=== PATIENT | female | born 1980 ===

== ENCOUNTER 2023-02-10 10:18 | Day surgery (SDC) | payer BC ==
[~2023-02-10] VITALS: Ht 170.2 cm; Wt 99.0 kg
[2023-02-10 12:11] VITALS: BP 130/101; PULSE 89; TEMP 97.6
[2023-02-10] MEDS ORDERED: BUSPAR 30MG30 MG/TAB PO (12:14)
[2023-02-10] MEDS ORDERED: CATAPRES0.3 MG PO (12:14)
[2023-02-10] MEDS ORDERED: SINGULAIR 110 MG/TAB PO (12:15)
[2023-02-10] MEDS ORDERED: PROTONIX20 MG PO (12:15)
[2023-02-10] MEDS ORDERED: ADDERALL5 MG PO (12:16)
[2023-02-10] MEDS ORDERED: MOBIC15 MG PO (12:16)
[2023-02-10] MEDS ORDERED: FLONASEALLERGY NS (12:17)
[2023-02-10] MEDS ORDERED: ZYRTEC 10MG10 MG PO (12:17)
[2023-02-10] MEDS ORDERED: ASTELIN NASAL S34 ML NS (12:18)
[2023-02-10 13:40] VITALS: BP 108/79; PULSE 91; TEMP 98.2
[2023-02-10 13:55] VITALS: BP 109/79; PULSE 84
[2023-02-10 14:10] VITALS: BP 118/74; PULSE 82
[2023-02-10 14:25] VITALS: BP 121/72; PULSE 85
--- NOTE | 2023-02-10 16:42 | NUR ---
[id number]: PT TO RECOVERY BAY 8 FROM ENDO S/P EGD/COLON A&O, PLACED ON MONITOR, VSS ON RA RECEIVED REPORT AND ASSUMED CARE OF PT FROM [facility] SPOUSE AT BEDSIDE PROVIDED FOOD/FLUIDS, TOLERATING WELL MD IN TO SPEAK WITH PT/FAMILY POST-PROCEDURE PT HAS REMAINED A&O, NAD, VSS ON RA, TOLERATING PO, IS WITHOUT SIGNIFICANT COMPLAINT, WITH STEADY GAIT THRU OUT STAY IV D/C'D. D/C INSTRUCTIONS, ANY FOLLOW UP REVIEWED AND HANDED TO PT. ALL QUESTIONS AND CONCERNS ADDRESSED TO PT SATISFACTION. TAKEN TO EXIT VIA W/C WITH ALL BELONGINGS AND PAPERWORK IN HAND, ASSISTED INTO PASSENGER SEAT OF POV. TO DRIVE HOME.
== END 2023-02-10 14:50 | disposition home or self-care (01) ==
LOC: SDCO 10:18
DX: R10.84 Generalized abdominal pain (principal); R14.1 Gas pain; R14.0 Abdominal distension (gaseous); R19.7 Diarrhea, unspecified; K63.5 Polyp of colon
CPT/HCPCS: J2704; J7120